=== PATIENT | female | born 1955 | race Caucasian/White ===

== ENCOUNTER 2017-02-20 12:37 | Emergency (ER) | payer BC, MEDICARE ==
[2017-02-20 12:45] VITALS: BP 134/93
[2017-02-20] MEDS ORDERED: CYCLOBENZAPRINE HCL 10 MG TABLET PO ONE (13:12)
[2017-02-20] MEDS ORDERED: CYCLOBENZAPRINE HCL 10 MG TABLET ONE (13:19)
--- OUTSIDE RECORDS SUMMARY | 2017-02-20 13:22 | XMS REPORT | Continuity of Care Document ---
:1955 Author Organization [facility] ([facility]) Address [address] [place] [address] Phone [phone] Care Team Providers Name Role Phone Keisha Dahl Primary Care Provider [phone] Source Comments This disclosure is being made pursuant to the Care Everywhere program, applicable federal and state laws, and may not contain all informaitonavailable regarding this patient.[facility] ([facility]) Active Allergies and Adverse Reactions Allergen Noted Date Severity Reactions Comments Clorazepate Monopotassium Urticaria (Hives) Codeine Urticaria (Hives) Honey Unknown Hydromorphone (Bulk) 03/03/2014 Urticaria (Hives),Pruritus Iodine Urticaria (Hives) Levofloxacin Pruritus,Angioedema Morphine 10/09/2014 Pruritus Other Agent Unknown with "honey and tide" Oxycodone-Acetaminophen 06/07/2011 Rash Penicillins Urticaria (Hives) Propoxyphene Pruritus,Nausea & Vomiting Tetanus Toxoid, Adsorbed Urticaria (Hives) Current Medications Prescription Sig. Disp. Refills Start End Date Status Date cholecalciferol Take 1,000 Units Active (VITAMIN D3) 1,000 by mouth daily. unit tablet traZODone 150 mg Take 100 mg by Active tablet mouth at bedtime SERTraline 100 mg Take 150 mg by Active tablet mouth daily levothyroxine 112 Take 125 mcg by Active mcg tablet mouth every morning before breakfast. aspirin 81 mg EC Take 81 mg by Active tablet mouth daily. docusate 100 mg Take 1 Cap by 60 Cap 5 Active capsule mouth 2 times 4 daily. Indications: CONSTIPATION tolterodine 2 mg XR Take 1 Cap by 60 Cap 3 Active capsule mouth daily. 4 Indications: BLADDER HYPERACTIVITY amLODIPine 2.5 mg Take 1 Tab by 30 Tab 11 Active tablet mouth Every 4 morning. Take the first dose in the evening, then take in the morning after that. Indications: HYPERTENSION warfarin 4 mg Take by mouth Active tablet daily Take 3mg 4 days a week, 4mg 2 days a week albuterol sulfate Use 180 mcg by Active 90 mcg/actuation inhalation every aepb 4 hours risperiDONE 1 mg Take 1 mg by Active tablet mouth 2 times daily traMADol 50 mg Take 50 mg by Active tablet mouth 4 times daily as needed hydrOXYzine HCl 25 Take 25 mg by Active mg tablet mouth every 4 hours as needed gabapentin PO Take 300 mg by Active mouth 3 times daily. predniSONE 5 mg Take 1 tablet (5 30 tablet Active tablet mg total) by 6 mouth daily. potassium chloride Take 1 tablet (10 30 tablet 1 Active 10 mEq XR tablet mEq total) by 6 mouth daily. Take 4 tablets today, and start with 1 tablet daily tomorrow. mycophenolate Take 2 tablets 120 tablet Active mofetil 500 mg (1,000 mg total) 6 tablet by mouth 2 times daily. HYDROcodone-acetami Take 1 tablet by Active nophen 5-325 mg per mouth every 4 tablet hours as needed. sirolimus 1 mg Take 8 tablets (8 240 tablet Active tablet mg total) by 7 mouth daily. Hold prior lab draw tacrolimus 1 mg Take 3 capsules 180 capsule 5 02/01/20 Discontinued capsule (3 mg total) by 6 17 mouth every 12 hours. sirolimus 2 mg Take 4 tablets (8 120 tablet 3 02/01/20 Discontinued tablet mg total) by 7 17 mouth 2 times daily. Hold prior lab draw sirolimus 2 mg Take 4 tablets (8 120 tablet 11 02/03/20 Discontinued tablet mg total) by 7 17 mouth daily. Hold prior lab draw sirolimus 1 mg Take 8 tablets (8 240 tablet 02/07/20 Discontinued tablet mg total) by 7 17 mouth daily. 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 10/10 ESRD (end stage renal disease) 09/07/2012 Overview: History of lithium use for 20 years. 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 Lumpectomy in 1984 and mastectomy in 1990 Chemo: Cyclophosphamide, methotrexate and 5-FU given in 1984 and 1990 Radiation: 5 weeks in 1984 Bipolar affective disorder 06/07/1975 Overview: Home meds given. 10/10 Resolved Problems Problem Noted Date Resolved Date Hypomagnesemia 10/10/2014 10/10/2014 Overview: Monitored and replaced as necessary throughout admission. 10/10 Pre-transplant evaluation for kidney transplant 12/11/2013 10/08/2014 Most Recent Encounters Date Type Specialty Providers Description 02/08/2017 Orders Only Transplant Ciro Zamora, Dx: bar host/hostess current use NEDA KENNY of immunosuppressive drug (Primary Dx) 02/06/2017 Telephone Transplant Chief Dim[place] Comp: Lab Results NEDA Washington RN 02/06/2017 Refill Transplant Nnamdi Musa: Kidney replaced by NEDA Washington RN transplant (Primary Dx) 02/02/2017 Refill Transplant Dimple Dx: Kidney replaced by NEDA Washington RN transplant (Primary Dx) 02/01/2017 Orders Only Transplant Cindi Chavira Dx: bar host/hostess current use NEDA Cunningham MD of immunosuppressive drug (Primary Dx) 01/31/2017 Telephone Transplant Musa, Dx: Kidney replaced by NEDA Washington RN transplant (Primary Dx) 01/29/2017 Office Visit Kory Lora MD Dx: Open wound of breast, left, subsequent encounter (Primary Dx) 01/29/2017 Office Visit Kory Lora MD Subj: Upcoming Appt Reminder 01/26/2017 Orders Only Transplant Cindi Chavira Dx: bar host/hostess current use NEDA Cunningham MD of immunosuppressive drug (Primary Dx) 01/24/2017 Office Visit Kory Lora MD Subj: Appointment Canceled 12/13/2016 Office Visit Kory Lora MD Dx: Open wound of breast, left, subsequent encounter (Primary Dx) 12/07/2016 Telephone Kory Lora MD 12/07/2016 Orders Only Transplant Oj Mullen, Dx: detention current use NEDA KENNY of immunosuppressive drug (Primary Dx) 12/05/2016 Telephone Transplant Musa, [facility] Comp: Lab Results NEDA Washington RN 11/28/2016 Orders Only Transplant Ibeth Feng, Dx: bar host/hostess current use NEDA KENNY of immunosuppressive drug (Primary Dx) 11/27/2016 Refill Transplant Musa, Dx: Kidney replaced by NEDA Washington RN transplant (SCD, KDPI 71%, cPRA 0%) (Primary Dx) 11/22/2016 Office Visit Kory Lora MD Dx: Open wound of breast, left, subsequent encounter (Primary Dx) 11/22/2016 Office Visit Transplant Default, Other Dx: Aftercare following NEDA Billg - [facility] organ transplant (Primary Ciro Zamora, Dx) Nephrology, Transplant Sv Social History Tobacco Use Types Packs/Day Years Used Date Former Smoker Cigarettes 1 16 Quit: 11/19/1991 Smokeless Tobacco: Never Used Tobacco Cessation:Counseling Given: Yes Comments: Alcohol Use Drinks/Week oz/Week Comments Yes 2 Glasses of wine 1.0 Last Filed Vital Signs Vital Sign Reading Time Taken Blood Pressure 134/75 11/22/2016 1:17 PM HOME ENERGY CONSULTANT Pulse 72 11/22/2016 1:17 PM HOME ENERGY CONSULTANT Temperature 35.9 C (96.6 F) 12/13/2016 1:03 PM HOME ENERGY CONSULTANT Respiratory Rate 16 10/12/2014 4:00 PM HOME ENERGY CONSULTANT Height 1.575 m (5' 2.01") 11/08/2016 11:28 AM HOME ENERGY CONSULTANT Weight 76.6 kg (168 lb 14 oz) 11/22/2016 1:17 PM HOME ENERGY CONSULTANT Body Mass Index 30.88 11/22/2016 1:17 PM HOME ENERGY CONSULTANT Oxygen Saturation 98% 10/12/2014 3:55 PM HOME ENERGY CONSULTANT Plan of Care Date Type Specialty Providers Description 10/10/2017 Appointment Transplant KEVIN/TORY/MIKE Default, Other Billg - [facility] [address] [place] [phone] (Fax) Subj: Appointment Nephrology, Transplant Sv Scheduled Health Maintenance Due Date Last Done Comments Hepatitis B Vaccine (1 of 3 1955 - Primary Series) MMR Vaccine 1974 Pneumococcal Vaccine (1 of 1975 3 - PCV13) Cervical Cancer Screening 1986 Colonoscopy 2006 Mammogram 06/21/2012 06/21/2011 Zoster Vaccine 2016 Lipid Disorder Screening 05/10/2020 05/10/2015, 11/09/2014, Additional history 06/07/2011 exists HCV Screening Completed 06/07/2011, 05/16/2004 Influenza Vaccine: Seasonal Addressed 09/28/2016 (Completed Overridden with the outside this hospital intention of not or clinic) completing the topic Results from Last 3 Months EXTERNAL AMYLASE (02/12/2017 7:41 AM)Only the most recent of5 resultswithin the time period is included. Component Value Range Ext Amylase 27 25-115 U/L Narrative Verified by Nan Foster on 02/12/2017. EXTERNAL CO2 (02/12/2017 7:41 AM)Only the most recent of5 resultswithin the time period is included. Component Value Range Ext CO2 26.8 24-32.6 mmol/L Narrative Verified by Nan Foster on 02/12/2017. EXTERNAL PLATELET COUNT (02/12/2017 7:41 AM)Only the most recent of5 resultswithin the time period is included. Component Value Range Ext Platelet Count 174 50-450 K/mm3 Narrative Verified by Nan Foster on 02/12/2017. EXTERNAL WBC (02/12/2017 7:41 AM)Only the most recent of5 resultswithin the time period is included. Component Value Range Ext WBC Count 7.1(H) 4.00-10.5 K/mm3 Narrative Verified by Nan Foster on 02/12/2017. EXTERNAL HEMOGLOBIN (02/12/2017 7:41 AM)Only the most recent of5 resultswithin the time period is included. Component Value Range Ext Hemoglobin 12.4(L) 12.5-16.0 gm/dL Narrative Verified by Nan Foster on 02/12/2017. EXTERNAL POTASSIUM (02/12/2017 7:41 AM)Only the most recent of5 resultswithin the time period is included. Component Value Range Ext Potassium 3.8 3.4-4.6 mmol/L Narrative Verified by Nan Foster on 02/12/2017. EXTERNAL CREATININE (02/12/2017 7:41 AM)Only the most recent of5 resultswithin the time period is included. Component Value Range Ext Creatinine 1.26 0.4-1.4 mg/dL Narrative Verified by Nan Foster on 02/12/2017. EXTERNAL BLOOD UREA NITROGEN (BUN) (02/12/2017 7:41 AM)Only the most recent of5 resultswithin the time period is included. Component Value Range Ext BUN 12(L) 13-23 mg/dL Narrative Verified by Nan Foster on 02/12/2017. EXTERNAL SIROLIMUS LEVEL DRUG LEVEL (02/12/2017)Only the most recent of3 resultswithin the time period is included. Component Value Range Ext Sirolimus 9.4 5-30 NG/ML EXTERNAL TACROLIMUS DRUG LEVEL (02/05/2017)Only the most recent of5 resultswithin the time period is included. Component Value Range Ext Tacrolimus 1.6(A) 5-15 NG/ML
--- NOTE | 2017-02-20 14:15 | ERNOTE ---
Headache ER HPI - Narrative Date of Service: 02/20/17 - General Presenting Symptoms: headache Time Seen by Provider: 02/20/17 12:54 Source: patient Exam Limitations: no limitations - Immun/Allergies/Home Medications Immunizations: IMMUNIZATION HX Immunizations Up to Date Yes History of Influenza Vaccine No Hx Pneumococcal Vaccination No Allergies/Adverse Reactions: Allergies codeine [Codeine] Allergy (Severe, Verified 02/20/17 12:46) anaphylactic clorazepate dipotassium [From Tranxene T-Tab] Allergy (Intermediate, Verified 12:46) itch hydromorphone HCl [From Dilaudid] Allergy (Intermediate, Verified 02/20/17 12:46 ) Hives morphine Allergy (Intermediate, Verified 02/20/17 12:46) Hives oxycodone HCl [From Percocet] Allergy (Intermediate, Verified 02/20/17 12:46) Hives Penicillins Allergy (Intermediate, Verified 02/20/17 12:46) Hives propoxyphene HCl [From Darvon] Allergy (Intermediate, Verified 02/20/17 12:46) Hives Tetanus Vaccines and Toxoid [Tetanus] Allergy (Intermediate, Verified 02/20/17 12:46) Hives iodine Allergy (Mild, Verified 02/20/17 12:46) Hives honey Allergy (Verified 02/20/17 12:46) Iodinated Contrast Media - Oral and [Iodinated Contrast Media - IV Dye] Allergy (Verified 02/20/17 12:46) levofloxacin [From Levaquin] Adverse Reaction (Severe, Verified 02/20/17 12:46) swelling Home Medications: HOME MEDICATIONS Albuterol Sulfate [Albuterol Sulfate 2.5 MG/0.5ML] 1 vial IH Q4H PRN 09/27/16 [ Last Taken Unknown] Albuterol Sulfate [Proair Respiclick] 90 mcg IH Q4H PRN 09/27/16 [Last Taken Unknown] Amlodipine Besylate [Norvasc] 2.5 mg PO DAILY 09/27/16 [Last Taken Unknown] Aspirin 81 mg PO DAILY 09/27/16 [Last Taken Unknown] Calcium Carbonate/Vitamin D3 [Calcium Petites Softgel] 1 each PO BID 09/27/16 [ Last Taken Unknown] Cholecalciferol [Vitamin D] 1,000 unit PO DAILY 09/27/16 [Last Taken Unknown] Docusate Sodium [Doc-Q-Lace] 100 mg PO BID PRN 09/27/16 [Last Taken Unknown] Eletriptan HBr [Relpax] 40 mg PO BID PRN 09/27/16 [Last Taken Unknown] Gabapentin 300 mg PO TID 09/27/16 [Last Taken Unknown] HYDROcodone/ACETAMINOPHEN [[place] 5-325 Tablet] 1 tab PO Q6H PRN 09/27/16 [Last Taken Unknown] Levothyroxine Sodium [Levo-T] 100 mcg PO DAILY 09/27/16 [Last Taken Unknown] Magnesium Oxide [Magnesium] 325 mg PO DAILY 09/27/16 [Last Taken Unknown] Mycophenolate Mofetil [Cellcept] 1,000 mg PO BID 09/27/16 [Last Taken Unknown] Sertraline HCl [Zoloft] 150 mg PO DAILY 09/27/16 [Last Taken Unknown] Tolterodine Tartrate [Detrol LA] 4 mg PO DAILY 09/27/16 [Last Taken Unknown] Warfarin Sodium [Coumadin] 4 mg PO DAILY 09/27/16 [Last Taken Unknown] hydrOXYzine HCL [Atarax] 25 mg PO Q6H PRN 09/27/16 [Last Taken Unknown] predniSONE [Louise] 5 mg PO DAILY 09/27/16 [Last Taken Unknown] risperiDONE [Risperdal] 1 mg PO BID 09/27/16 [Last Taken Unknown] traZODone HCL [Desyrel] 150 mg PO DAILY 09/27/16 [Last Taken Unknown] Enoxaparin Sodium [Lovenox] 80 mg SC Q12H #800 mg 09/28/16 [Last Taken Unknown] HYDROcodone/ACETAMINOPHEN [[place] 5-325] 1 each PO Q4H #20 tablet 10/06/16 [Last Taken Unknown] Cyclobenzaprine HCl [Flexeril] 10 mg PO TID PRN #20 tablet 02/20/17 [Last Taken Unknown] - Pain Pain Score: 8 - History of Present Illness Narrative: 61-year-old female presenting to the emergency room for what she said was a migraine. Patient has pain rating from her neck around to the front of her eyes. She is light sensitive. Patient states that the pain does radiate down the back of her neck. Date (Duration): 02/20/17 Activity at onset: exertion Timing of Headache: gradual Quality: Present: pressure Severity Maximum: Present: mild Severity-Currently: Present: mild Headache frequency: Present: occasional headaches Modifying Factors - (Improves): Reports: medication Modifying Factors - (Worsens): Reports: movement, exposure to light Associated Symptoms: Reports: nausea. Denies: fever/chills, vomiting, sweating , nasal congestion, nasal drainage Exacerbated by:: Reports: light, movement Prior Treament: Reports: similar symptoms before Review of Systems - Narrative Narrative: patient states she has pain to her occipital area moving to her forehead and down her neck. - Review of Systems Constitutional: Present: no symptoms reported EYE: Present: see HPI ENT: Present: no symptoms reported Respiratory: Present: no symptoms reported Cardiology: Present: no symptoms reported Gastrointestinal/Abdominal: Present: no symptoms reported Genitourinary: Present: no symptoms reported Musculoskeletal: Present: See HPI, neck pain Skin: Present: no symptoms reported Neurological: Present: See HPI, headache. Absent: dizziness/light-headedness, numbness, tingling, tremors Endocrine: Present: no symptoms reported Hematologic/Lymphatic: Present: no symptoms reported Psych: Present: no symptoms reported - Narrative Narrative: kidney transplant 2 years ago - Patient's Past Medical History Patient History - Medical: Headache, Hypothyroidism, Renal Failure Patient History - Cardiac/Respiratory: Pulmonary Embolism, Other Patient History - Cancer: Breast, Chemotherapy history, Radiation Therapy Patient History - Surgical Procedures: Cancer Surgery, Gastric Bypass, Hysterectomy, Other Patient History - Other: None LMP (females 10-50): Menopausal - Family History Mother Family History - Medical: Bipolar Family History - Cardiac/Respiratory: Hypertension Father Family History - Medical: Family History - Cardiac/Respiratory: Hypertension - Social History Living Situations: home Abuse History: No History of abuse Psych History: No pertinent hx Alcohol Use: none Drug Use: none - Immunizations Immunizations Up to Date: Yes Hx Pneumococcal Vaccination: No History of Influenza Vaccine: No Physical Exam - Physical Exam Narrative: Patient is complaining of headache that starts at the base of her head and moves forward towards her eyes. Patient to shrug her shoulder she states that she does get some relief when shoulders are held in a shrugging position. General Appearance: Present: wd/wn, alert Eye Exam: Normal inspection: bilateral Ears, Nose, Throat: Present: normal ENT inspection Neck: Present: normal inspection Respiratory: Present: no respiratory distress Cardiovascular/Chest: Present: regular rate, rhythm Gastrointestinal/Abdominal: Present: normal bowel sounds Back Exam: Present: normal inspection Extremity Exam: Present: normal inspection Neurological Exam: Present: alert, oriented, normal mood/affect, no motor/ sensory deficits Skin Exam: Present: normal color Lymphatic Exam: Present: no adenopathy ED Progress - Vital Signs Patient's Vital Signs:: I have reviewed the patient's vital signs. Vital Signs: Vital Signs 02/20/17 12:42 Temperature 36.4 C L Pulse Rate 72 Respiratory 16 Rate Blood Pressure 134/93 O2 Sat by Pulse 97 Oximetry - Progress/Reassessment Chief Complaint: Headache Progress:: Improved Departure Clinical Impression: Tension headache - Departure Disposition: Home self-care Condition: Stable Instructions: Tension Headache, [id number] Additional Instructions: Continue previous home medications. Follow up with your Primary care provider in the next 2-3 days. Return to the emergency room if symptoms persist or if they are not able to be controlled with medication. Referrals: Keisha Dahl ARNP [Primary Care Provider] - Prescriptions: Cyclobenzaprine HCl [Flexeril] 10 mg PO TID PRN #20 tablet PRN Reason: Pain
== END 2017-02-20 14:15 | disposition home or self-care (01) ==
LOC: ER 12:37
DX: G44.209 Tension-type headache, unspecified, not intractable (principal); Z85.3 Personal history of malignant neoplasm of breast

== ENCOUNTER 2017-04-22 11:15 | Emergency (ER) | payer MEDICARE, BC ==
[2017-04-22] MEDS ORDERED: NORMAL SALINE 1,000 ML IV ONE (11:50)
[2017-04-22] MEDS ORDERED: METOCLOPRAMIDE HCL 5 MG/ML VIAL IV ONE (11:50)
[2017-04-22] MEDS ORDERED: KETOROLAC TROMETHAMINE 30 MG/ML VIAL IV ONE (11:50)
[2017-04-22] MEDS ORDERED: diphenhydrAMINE HCL 50 MG/ML VIAL IV ONE (11:50)
--- OUTSIDE RECORDS SUMMARY | 2017-04-22 11:52 | XMS REPORT | Continuity of Care Document ---
:1955 Author Organization [facility] ([facility]) Address [address] [place] [address] Phone [phone] Care Team Providers Name Role Phone Keisha Dahl Primary Care Provider [phone] Source Comments This disclosure is being made pursuant to the Care Everywhere program, applicable federal and state laws, and may not contain all informaitonavailable regarding this patient.[facility] ([facility]) Active Allergies and Adverse Reactions Allergen Noted Date Severity Reactions Comments Clorazepate Monopotassium Urticaria (Hives) Codeine Urticaria (Hives) Honey Unknown Hydromorphone (Bulk) 03/03/2014 Urticaria (Hives),Pruritus Iodine Urticaria (Hives) Levofloxacin Pruritus,Angioedema Morphine 10/09/2014 Pruritus Other Agent Unknown with "honey and tide" Oxycodone-Acetaminophen 06/07/2011 Rash Penicillins Urticaria (Hives) Propoxyphene Pruritus,Nausea & Vomiting Tetanus Toxoid, Adsorbed Urticaria (Hives) Current Medications Prescription Sig. Disp. Refills Start Date End Date Status cholecalciferol Take 1,000 Units by Active (VITAMIN D3) 1,000 mouth daily. unit tablet traZODone 150 mg Take 100 mg by Active tablet mouth at bedtime SERTraline 100 mg Take 150 mg by Active tablet mouth daily levothyroxine 112 mcg Take 125 mcg by Active tablet mouth every morning before breakfast. aspirin 81 mg EC Take 81 mg by mouth Active tablet daily. docusate 100 mg Take 1 Cap by mouth 60 Cap 5 10/09/2014 Active capsule 2 times daily. Indications: CONSTIPATION tolterodine 2 mg XR Take 1 Cap by mouth 60 Cap 3 10/12/2014 Active capsule daily. Indications: BLADDER HYPERACTIVITY amLODIPine 2.5 mg Take 1 Tab by mouth 30 Tab 11 10/12/2014 Active tablet Every morning. Take the first dose in the evening, then take in the morning after that. Indications: HYPERTENSION warfarin 4 mg tablet Take by mouth daily Active Take 3mg 4 days a week, 4mg 2 days a week albuterol sulfate 90 Use 180 mcg by Active mcg/actuation aepb inhalation every 4 hours risperiDONE 1 mg Take 1 mg by mouth Active tablet 2 times daily traMADol 50 mg tablet Take 50 mg by mouth Active 4 times daily as needed hydrOXYzine HCl 25 mg Take 25 mg by mouth Active tablet every 4 hours as needed gabapentin PO Take 300 mg by Active mouth 3 times daily. predniSONE 5 mg Take 1 tablet (5 mg 30 tablet 11 02/28/2016 Active tablet total) by mouth daily. potassium chloride 10 Take 1 tablet (10 30 tablet 1 07/07/2016 Active mEq XR tablet mEq total) by mouth daily. Take 4 tablets today, and start with 1 tablet daily tomorrow. mycophenolate mofetil Take 2 tablets 120 tablet 11 10/04/2016 Active 500 mg tablet (1,000 mg total) by mouth 2 times daily. HYDROcodone-acetamino Take 1 tablet by Active phen 5-325 mg per mouth every 4 hours tablet as needed. sirolimus 1 mg tablet Take 8 tablets (8 240 tablet 11 02/06/2017 Active mg total) by mouth daily. 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 Hypernatremia 10/11/2014 Overview: Polyuria from teller NDI Acquired nephrogenic diabetes insipidus (lithium toxicity) [...] Renal biopsy from reportedly showed secondary FSGS [place] nephropathy 06/07/2011 Overview: Based on history of [...] Recent Encounters Date Type Specialty Providers Description 02/27/2017 Orders Only Care Coordination Linda Pena 02/08/2017 Orders Only Transplant Ciro Myrick, Dx: USP current MD use of immunosuppressive drug (Primary Dx) 02/06/2017 Telephone Transplant NEDA Musa, Chief Comp: Lab Results Kalina Washington RN 02/06/2017 Refill Transplant NEDA Musa, Dx: Kidney replaced by Kalina Washington RN transplant (Primary Dx) 02/02/2017 Refill Transplant NEDA Musa, Dx: Kidney replaced by Kalina Washington RN transplant (Primary Dx) 02/01/2017 Orders Only Transplant Cindi Groves Dx: USP current MD Marisa use of immunosuppressive drug (Primary Dx) 01/31/2017 Telephone Transplant NEDA Musa, Dx: Kidney replaced by Kalina Washington RN transplant (Primary Dx) 01/29/2017 Office Visit SrKory Chen MD Dx: Open wound of breast, left, subsequent encounter (Primary Dx) 01/29/2017 Office Visit Srg Kory Pool MD Subj: Upcoming Appt Reminder 01/26/2017 Orders Only Transplant Cindi Groves Dx: continuous churn buttermaker current MD Marisa use of immunosuppressive drug (Primary Dx) 01/24/2017 Office Visit [facility] Plastics Kory Mir MD Subj: Appointment Canceled Social History Tobacco Use Types Packs/Day Years Used Date Former Smoker Cigarettes 1 16 Quit: 11/19/1991 Smokeless Tobacco: Never Used Tobacco Cessation:Counseling Given: Yes Comments: Alcohol Use Drinks/Week oz/Week Comments Yes 2 Glasses of wine 1.0 Last Filed Vital Signs Vital Sign Reading Time Taken Blood Pressure 134/75 11/22/2016 1:17 PM TECHNICAL ADMINISTRATOR Pulse 72 11/22/2016 1:17 PM TECHNICAL ADMINISTRATOR Temperature 35.9 C (96.6 F) 12/13/2016 1:03 PM TECHNICAL ADMINISTRATOR Respiratory Rate 16 10/12/2014 4:00 PM TECHNICAL ADMINISTRATOR Height 1.575 m (5' 2.01") 11/08/2016 11:28 AM TECHNICAL ADMINISTRATOR Weight 76.6 kg (168 lb 14 oz) 11/22/2016 1:17 PM TECHNICAL ADMINISTRATOR Body Mass Index 30.88 11/22/2016 1:17 PM TECHNICAL ADMINISTRATOR Oxygen Saturation 98% 10/12/2014 3:55 PM TECHNICAL ADMINISTRATOR Plan of Care Date Type Specialty Providers Description 05/29/2017 Appointment [facility] Gonzalo Ortiz MD [address] [place] [address] [phone] (Fax) Subj: Appointment Efrain Oreilly MD [address] [place] [address] [phone] (Fax) Scheduled 10/10/2017 Appointment Transplant KI/TORY/MIKE Default, Other Billg - Defo [address] [place] [address] [phone] (Fax) Subj: Appointment Nephrology, Transplant Sv Scheduled Health Maintenance Due Date Last Done Comments Hepatitis B Vaccine (1 of 3 1955 - Primary Series) MMR Vaccine 1974 Pneumococcal Vaccine (1 of 1975 3 - PCV13) Cervical Cancer Screening 1986 Colonoscopy 2006 Zoster Vaccine 2016 Mammogram 08/17/2017 08/17/2016, 08/17/2016 (Completed outside this hospital or clinic), 06/21/2011 Lipid Disorder Screening 05/10/2020 05/10/2015, 11/09/2014, Additional history 06/07/2011 exists HCV Screening Completed 06/07/2011, 05/16/2004 Influenza Vaccine: Seasonal Addressed 09/28/2016 (Completed Overridden with the outside this hospital intention of not or clinic) completing the topic Results from Last 3 Months EXTERNAL AMYLASE (02/12/2017 7:41 AM)Only the most recent of3 resultswithin the time period is included. Component Value Range Ext Amylase 27 25-115 U/L Narrative Verified by Nan Foster on 02/12/2017. EXTERNAL CO2 (02/12/2017 7:41 AM)Only the most recent of3 resultswithin the time period is included. Component Value Range Ext CO2 26.8 24-32.6 mmol/L Narrative Verified by Nan Foster on 02/12/2017. EXTERNAL PLATELET COUNT (02/12/2017 7:41 AM)Only the most recent of3 resultswithin the time period is included. Component Value Range Ext Platelet Count 174 50-450 K/mm3 Narrative Verified by Nan Foster on 02/12/2017. EXTERNAL WBC (02/12/2017 7:41 AM)Only the most recent of3 resultswithin the time period is included. Component Value Range Ext WBC Count 7.1(H) 4.00-10.5 K/mm3 Narrative Verified by Nan Foster on 02/12/2017. EXTERNAL HEMOGLOBIN (02/12/2017 7:41 AM)Only the most recent of3 resultswithin the time period is included. Component Value Range Ext Hemoglobin 12.4(L) 12.5-16.0 gm/dL Narrative Verified by Nan Foster on 02/12/2017. EXTERNAL POTASSIUM (02/12/2017 7:41 AM)Only the most recent of3 resultswithin the time period is included. Component Value Range Ext Potassium 3.8 3.4-4.6 mmol/L Narrative Verified by Nan Foster on 02/12/2017. EXTERNAL CREATININE (02/12/2017 7:41 AM)Only the most recent of3 resultswithin the time period is included. Component Value Range Ext Creatinine 1.26 0.4-1.4 mg/dL Narrative Verified by Nan Foster on 02/12/2017. EXTERNAL BLOOD UREA NITROGEN (BUN) (02/12/2017 7:41 AM)Only the most recent of3 resultswithin the time period is included. Component Value Range Ext BUN 12(L) 13-23 mg/dL Narrative Verified by Nan Foster on 02/12/2017. EXTERNAL SIROLIMUS LEVEL DRUG LEVEL (02/12/2017)Only the most recent of2 resultswithin the time period is included. Component Value Range Ext Sirolimus 9.4 5-30 NG/ML EXTERNAL TACROLIMUS DRUG LEVEL (02/05/2017)Only the most recent of2 resultswithin the time period is included. Component Value Range Ext Tacrolimus 1.6(A) 5-15 NG/ML
[2017-04-22] MEDS ORDERED: diphenhydrAMINE HCL 50 MG/ML VIAL ONE (11:54)
[2017-04-22] MEDS ORDERED: METOCLOPRAMIDE HCL 5 MG/ML VIAL ONE (11:55)
[2017-04-22] MEDS ORDERED: KETOROLAC TROMETHAMINE 30 MG/ML VIAL ONE (11:55)
--- NOTE | 2017-04-22 12:27 | ERNOTE ---
Headache ER HPI - Narrative Date of Service: 04/22/17 - General Presenting Symptoms: "migraine" Time Seen by Provider: 04/22/17 11:37 Source: patient, RN notes reviewed Exam Limitations: no limitations - Immun/Allergies/Home Medications Immunizations: IMMUNIZATION HX Immunizations Up to Date Yes History of Influenza Vaccine No Hx Pneumococcal Vaccination No Allergies/Adverse Reactions: Allergies codeine [Codeine] Allergy (Severe, Verified 04/22/17 11:24) anaphylactic clorazepate dipotassium [From Tranxene T-Tab] Allergy (Intermediate, Verified 11:24) itch hydromorphone HCl [From Dilaudid] Allergy (Intermediate, Verified 04/22/17 11:24 ) Hives morphine Allergy (Intermediate, Verified 04/22/17 11:24) Hives oxycodone HCl [From Percocet] Allergy (Intermediate, Verified 04/22/17 11:24) Hives Penicillins Allergy (Intermediate, Verified 04/22/17 11:24) Hives propoxyphene HCl [From Darvon] Allergy (Intermediate, Verified 04/22/17 11:24) Hives Tetanus Vaccines and Toxoid [Tetanus] Allergy (Intermediate, Verified 04/22/17 11:24) Hives iodine Allergy (Mild, Verified 04/22/17 11:24) Hives honey Allergy (Verified 04/22/17 11:24) Iodinated Contrast Media - Oral and [Iodinated Contrast Media - IV Dye] Allergy (Verified 04/22/17 11:24) levofloxacin [From Levaquin] Adverse Reaction (Severe, Verified 04/22/17 11:24) swelling Home Medications: HOME MEDICATIONS Albuterol Sulfate [Albuterol Sulfate 2.5 MG/0.5ML] 1 vial IH Q4H PRN 09/27/16 [ Last Taken Unknown] Albuterol Sulfate [Proair Respiclick] 90 mcg IH Q4H PRN 09/27/16 [Last Taken Unknown] Amlodipine Besylate [Norvasc] 2.5 mg PO DAILY 09/27/16 [Last Taken Unknown] Aspirin 81 mg PO DAILY 09/27/16 [Last Taken Unknown] Calcium Carbonate/Vitamin D3 [Calcium Petites Softgel] 1 each PO BID 09/27/16 [ Last Taken Unknown] Cholecalciferol [Vitamin D] 1,000 unit PO DAILY 09/27/16 [Last Taken Unknown] Docusate Sodium [Doc-Q-Lace] 100 mg PO BID PRN 09/27/16 [Last Taken Unknown] Eletriptan HBr [Relpax] 40 mg PO BID PRN 09/27/16 [Last Taken Unknown] Gabapentin 300 mg PO TID 09/27/16 [Last Taken Unknown] HYDROcodone/ACETAMINOPHEN [[place] 5-325 Tablet] 1 tab PO Q6H PRN 09/27/16 [Last Taken Unknown] Levothyroxine Sodium [Levo-T] 100 mcg PO DAILY 09/27/16 [Last Taken Unknown] Magnesium Oxide [Magnesium] 325 mg PO DAILY 09/27/16 [Last Taken Unknown] Mycophenolate Mofetil [Cellcept] 1,000 mg PO BID 09/27/16 [Last Taken Unknown] Sertraline HCl [Zoloft] 150 mg PO DAILY 09/27/16 [Last Taken Unknown] Tolterodine Tartrate [Detrol LA] 4 mg PO DAILY 09/27/16 [Last Taken Unknown] Warfarin Sodium [Coumadin] 4 mg PO DAILY 09/27/16 [Last Taken Unknown] hydrOXYzine HCL [Atarax] 25 mg PO Q6H PRN 09/27/16 [Last Taken Unknown] predniSONE [Louise] 5 mg PO DAILY 09/27/16 [Last Taken Unknown] risperiDONE [Risperdal] 1 mg PO BID 09/27/16 [Last Taken Unknown] traZODone HCL [Desyrel] 150 mg PO DAILY 09/27/16 [Last Taken Unknown] Enoxaparin Sodium [Lovenox] 80 mg SC Q12H #800 mg 09/28/16 [Last Taken Unknown] HYDROcodone/ACETAMINOPHEN [[place] 5-325] 1 each PO Q4H #20 tablet 10/06/16 [Last Taken Unknown] Cyclobenzaprine HCl [Flexeril] 10 mg PO TID PRN #20 tablet 02/20/17 [Last Taken Unknown] - History of Present Illness Narrative: Melissa is a 61 y/o female brought to the ED by her for a migraine that began at 0300 today. She was already awake because she normally goes to work at that time. Her pain began abruptly and worsened quickly. She reports that this is similar to her usual migraine. She took sinus medication, Relpax and [place] without relief. Date (Duration): 04/22/17 Time (Timing): 03:00 Timing of Headache: abrupt Context Headache: Present: new onset Quality: Present: achy, throbbing Severity Maximum: Present: severe Severity-Currently: Present: severe Headache frequency: Present: occasional headaches Associated Symptoms: Reports: nausea, nasal congestion, nasal drainage. Denies : fever/chills, vomiting, weakness, numbness/tingling, vision changes, light- headedness, dizziness, neck pain/stiffness Exacerbated by:: Reports: light. Denies: noise, movement, position Prior Treament: Reports: recently seen, similar symptoms before Review of Systems - Review of Systems Constitutional: Absent: recent illness, fever, chills EYE: Absent: eye pain, blurred vision, double vision ENT: Present: nose congestion, nasal drainage. Absent: ear pain, sore throat Respiratory: Absent: shortness of breath, cough Cardiology: Present: no symptoms reported Gastrointestinal/Abdominal: Present: nausea. Absent: vomiting, abdominal pain Genitourinary: Present: no symptoms reported Musculoskeletal: Absent: neck pain, joint pain Skin: Absent: rash, lesions Neurological: Present: headache. Absent: dizziness/light-headedness, weakness, numbness Endocrine: Present: no symptoms reported Hematologic/Lymphatic: Present: easy bruising, easy bleeding Psych: Present: no symptoms reported - Patient's Past Medical History Patient History - Medical: Headache, Hypothyroidism, Renal Failure Patient History - Cardiac/Respiratory: Pulmonary Embolism, Other Patient History - Cancer: Breast, Chemotherapy history, Radiation Therapy Patient History - Surgical Procedures: Cancer Surgery, Gastric Bypass, Hysterectomy, Other Patient History - Other: None LMP (females 10-50): Menopausal - Family History Mother Family History - Medical: Bipolar Family History - Cardiac/Respiratory: Hypertension Father Family History - Medical: Family History - Cardiac/Respiratory: Hypertension - Social History Living Situations: home Abuse History: No History of abuse Psych History: No pertinent hx Smoking Status: Former smoker Alcohol Use: none Drug Use: none - Immunizations Immunizations Up to Date: Yes Hx Pneumococcal Vaccination: No History of Influenza Vaccine: No Physical Exam - Physical Exam General Appearance: Present: wd/wn, alert, mild distress, other - sitting in darkened room, appears mildly uncomfortable Eye Exam: Normal inspection: bilateral, PERRL: bilateral, Photophobia: bilateral Ears, Nose, Throat: Present: nasal congestion, normal pharynx. Absent: sinus pain/drainage Neck: Present: normal inspection, nontender, supple, full range of motion Respiratory: Present: no respiratory distress, normal breath sounds, no accessory muscle use, lungs clear Cardiovascular/Chest: Present: regular rate, rhythm, systolic murmur Extremity Exam: Present: normal except - - chronic edema, right arm Neurological Exam: Present: alert, oriented, normal mood/affect, no motor/ sensory deficits Skin Exam: Present: warm/dry, pallor ED Progress - Vital Signs Patient's Vital Signs:: I have reviewed the patient's vital signs. Vital Signs: Vital Signs 04/22/17 04/22/17 11:20 12:07 Temperature 36.4 C L 36.8 C Pulse Rate 88 85 Respiratory 12 14 Rate Blood Pressure 151/84 176/83 O2 Sat by Pulse 95 95 Oximetry - Progress/Reassessment Chief Complaint: Headache Progress:: Pain free at discharge Progress Note-Subjective: 04/22/17 12:56 Migraine pain relieved with Toradol, Reglan, Benadryl and IV NS bolus. Patient to be d/c'd to home when IVF is finished. Departure Clinical Impression: Migraine Qualifiers: Migraine type: without aura Status migrainosus presence: without status migrainosus Intractability: not intractable Qualified Code(s): G43.009 - Migraine without aura, not intractable, without status migrainosus - Departure Disposition: Home self-care Condition: Good Instructions: Migraine Headache, [id number] Additional Instructions: Rest and drink plenty of fluids today Continue your routine medications Follow up as needed Referrals: Keisha Dahl ARNP [Primary Care Provider] -
[2017-04-22 13:20] VITALS: BP 174/83
== END 2017-04-22 13:20 | disposition home or self-care (01) ==
LOC: ER 11:15
DX: G43.009 Migraine without aura, not intractable, without status migrainosus (principal); E03.9 Hypothyroidism, unspecified; Z85.3 Personal history of malignant neoplasm of breast

== ENCOUNTER 2017-08-03 12:35 | Emergency (ER) | payer MEDICARE, BC ==
[2017-08-03 12:56] VITALS: BP 157/75
[2017-08-03] MEDS ORDERED: CYCLOBENZAPRINE HCL 10 MG TABLET PO ONE (13:08)
[2017-08-03] MEDS ORDERED: HYDROcodone/ACETAMINOPHEN 1 EACH TABLET PO ONE (13:08)
[2017-08-03] MEDS ORDERED: HYDROcodone/ACETAMINOPHEN 1 EACH TABLET ONE (13:13)
[2017-08-03] MEDS ORDERED: CYCLOBENZAPRINE HCL 10 MG TABLET ONE (13:13)
--- NOTE | 2017-08-03 13:15 | ERNOTE ---
Trauma/Assault HPI - Narrative Date of Service: 08/03/17 - General Stated Complaint: FALL Time Seen by Provider: 08/03/17 12:59 Source: patient, RN notes reviewed Exam Limitations: no limitations - Immun/Allergies/Home Medications Immunizations: IMMUNIZATION HX Immunizations Up to Date Yes History of Influenza Vaccine No Hx Pneumococcal Vaccination No Allergies/Adverse Reactions: Allergies codeine [Codeine] Allergy (Severe, Verified 08/03/17 12:56) anaphylactic clorazepate dipotassium [From Tranxene T-Tab] Allergy (Intermediate, Verified 12:56) itch hydromorphone HCl [From Dilaudid] Allergy (Intermediate, Verified 08/03/17 12:56 ) Hives morphine Allergy (Intermediate, Verified 08/03/17 12:56) Hives oxycodone HCl [From Percocet] Allergy (Intermediate, Verified 08/03/17 12:56) Hives Penicillins Allergy (Intermediate, Verified 08/03/17 12:56) Hives propoxyphene HCl [From Darvon] Allergy (Intermediate, Verified 08/03/17 12:56) Hives Tetanus Vaccines and Toxoid [Tetanus] Allergy (Intermediate, Verified 08/03/17 12:56) Hives iodine Allergy (Mild, Verified 08/03/17 12:56) Hives honey Allergy (Verified 08/03/17 12:56) Iodinated Contrast- Oral and IV Dye [Iodinated Contrast Media - IV Dye] Allergy (Verified 08/03/17 12:56) levofloxacin [From Levaquin] Adverse Reaction (Severe, Verified 08/03/17 12:56) swelling Home Medications: HOME MEDICATIONS Albuterol Sulfate [Albuterol Sulfate 2.5 MG/0.5ML] 1 vial IH Q4H PRN 09/27/16 [ Last Taken Unknown] Albuterol Sulfate [Proair Respiclick] 90 mcg IH Q4H PRN 09/27/16 [Last Taken Unknown] Amlodipine Besylate [Norvasc] 2.5 mg PO DAILY 09/27/16 [Last Taken Unknown] Aspirin 81 mg PO DAILY 09/27/16 [Last Taken Unknown] Calcium Carbonate/Vitamin D3 [Calcium Petites Softgel] 1 each PO BID 09/27/16 [ Last Taken Unknown] Cholecalciferol [Vitamin D] 1,000 unit PO DAILY 09/27/16 [Last Taken Unknown] Docusate Sodium [Doc-Q-Lace] 100 mg PO BID PRN 09/27/16 [Last Taken Unknown] Eletriptan HBr [Relpax] 40 mg PO BID PRN 09/27/16 [Last Taken Unknown] Gabapentin 300 mg PO TID 09/27/16 [Last Taken Unknown] Levothyroxine Sodium [Levo-T] 100 mcg PO DAILY 09/27/16 [Last Taken Unknown] Mycophenolate Mofetil [Cellcept] 1,000 mg PO BID 09/27/16 [Last Taken Unknown] Sertraline HCl [Zoloft] 150 mg PO DAILY 09/27/16 [Last Taken Unknown] Warfarin Sodium [Coumadin] 4 mg PO DAILY 09/27/16 [Last Taken Unknown] hydrOXYzine HCL [Atarax] 25 mg PO Q6H PRN 09/27/16 [Last Taken Unknown] predniSONE [Louise] 5 mg PO DAILY 09/27/16 [Last Taken Unknown] risperiDONE [Risperdal] 1 mg PO BID 09/27/16 [Last Taken Unknown] traZODone HCL [Desyrel] 150 mg PO DAILY 09/27/16 [Last Taken Unknown] HYDROcodone/ACETAMINOPHEN [[place] 5-325] 1 each PO Q4H #20 tablet 10/06/16 [Last Taken Unknown] Cyclobenzaprine HCl [Flexeril] 10 mg PO TID PRN #20 tab 08/03/17 [Last Taken Unknown] HYDROcodone/ACETAMINOPHEN [[place] 5-325 Tablet] 1 tab PO Q6H PRN #20 tablet 08/03 [Last Taken Unknown] - History of Present Illness Date (Duration): 08/03/17 Narrative: 61 y/o female brought to the ED by a family member for low back pain after falling at home. She tripped on a rug and fell forwards. She took 1 [place] with some improvement. She states she is having muscle spasms. She also has mild pain in her left ankle due to the fall. Location Occurred: Reports: home Method of Injury: Reports: fall Severity: mild Loss of Consciousness: Reports: no loss of consciousness, remembers the event, remembers coming to hospital Review of Systems - Review of Systems Constitutional: Absent: fever, chills, malaise EYE: Present: no symptoms reported ENT: Present: no symptoms reported Respiratory: Absent: shortness of breath, cough Cardiology: Absent: chest pain, syncope Gastrointestinal/Abdominal: Absent: nausea, vomiting, abdominal pain Genitourinary: Present: no symptoms reported Musculoskeletal: Present: back pain, muscle pain, joint pain. Absent: joint swelling Skin: Absent: rash, lesions, lumps Neurological: Absent: headache, dizziness/light-headedness, weakness, numbness, tingling Endocrine: Present: no symptoms reported Hematologic/Lymphatic: Present: no symptoms reported Psych: Present: no symptoms reported - Patient's Past Medical History Patient History - Medical: Bipolar, Headache, Hypothyroidism, Renal Failure Patient History - Cardiac/Respiratory: Hypertension, Pulmonary Embolism, Other Patient History - Cancer: Breast, Chemotherapy history, Radiation Therapy Patient History - Surgical Procedures: Cancer Surgery, Gastric Bypass, Hysterectomy, Other Patient History - Other: None - Family History Mother Family History - Medical: Bipolar Family History - Cardiac/Respiratory: Hypertension Father Family History - Medical: Family History - Cardiac/Respiratory: Hypertension - Social History Living Situations: home Abuse History: No History of abuse Psych History: Hx of Bipolar Disorder Smoking Status: Former smoker Alcohol Use: none Drug Use: none - Immunizations Immunizations Up to Date: Yes Hx Pneumococcal Vaccination: No History of Influenza Vaccine: No Physical Exam - Physical Exam General Appearance: Present: wd/wn, alert, no apparent distress Head Exam: Present: normal inspection, no evidence of injury Neck: Present: normal inspection, nontender, supple, full range of motion Respiratory: Present: no respiratory distress, normal breath sounds, no accessory muscle use, lungs clear Cardiovascular/Chest: Present: regular rate, rhythm, no murmur, normal peripheral pulses Back Exam: Present: no CVA tenderness, no vertebral tenderness, decreased range of motion, other - bilateral lumbosacral paraspinal muscle tenderness with palpation Extremity Exam: Present: normal inspection, normal range of motion, other - mild tenderness with palpation of left lateral ankle, no ecchymosis, no edema, no deformity. Absent: joint swelling Neurological Exam: Present: alert, oriented, normal mood/affect, no motor/ sensory deficits Skin Exam: Present: normal color, warm/dry ED Progress - Vital Signs Patient's Vital Signs:: I have reviewed the patient's vital signs. Vital Signs: Vital Signs 08/03/17 12:51 Temperature 36.4 C L Pulse Rate 88 Respiratory 16 Rate Blood Pressure 157/75 O2 Sat by Pulse 97 Oximetry - Progress/Reassessment Chief Complaint: Fall Progress:: Improved Departure Clinical Impression: Lumbosacral pain Fall at home Qualifiers: Encounter type: initial encounter Qualified Code(s): W19.XXXA - Unspecified fall, initial encounter Mild ankle sprain Qualifiers: Encounter type: initial encounter Laterality: left Qualified Code(s): S93.402A - Sprain of unspecified ligament of left ankle, initial encounter - Departure Disposition: Home Follow Up Needed Condition: Stable Instructions: Form - Excuse from Work, School, or Physical Activity, Fall Prevention in the Home Additional Instructions: Ice to sore areas Muscle relaxant (Flexeril) will likely cause drowsiness Follow up with your doctor as scheduled Prescriptions: Cyclobenzaprine HCl [Flexeril] 10 mg PO TID PRN #20 tab PRN Reason: MUSCLE SPASMS HYDROcodone/ACETAMINOPHEN [[place] 5-325 Tablet] 1 tab PO Q6H PRN #20 tablet PRN Reason: Pain
== END 2017-08-03 13:20 | disposition home or self-care (01) ==
LOC: ER 12:35
DX: S93.402A Sprain of unspecified ligament of left ankle, initial encounter (principal); M54.5 Low back pain; Z85.3 Personal history of malignant neoplasm of breast; Z92.21 Personal history of antineoplastic chemotherapy; Z92.3 Personal history of irradiation; Z86.711 Personal history of pulmonary embolism; Z79.01 Long term (current) use of anticoagulants; Z87.891 Personal history of nicotine dependence; W01.0XXA Fall on same level from slipping, tripping and stumbling without subsequent striking against object, initial encounter; Y92.009 Unspecified place in unspecified non-institutional (private) residence as the place of occurrence of the external cause